=== PATIENT | female | born 1975 | race Two or more races ===

== ENCOUNTER 2024-02-16 10:50 | Emergency (ER) | payer MEDICAID, OTHER ==
[~2024-02-16] VITALS: Ht 167.6 cm; Wt 73.1 kg
[2024-02-16 11:40] VITALS: PULSE 83; RESP 16; TEMP 98.7; O2SAT 98
[2024-02-16 11:54] VITALS: BP 152/85
[2024-02-16] MEDS ORDERED: DOXY1CAP58 PO (11:57)
== END 2024-02-16 11:57 | disposition home or self-care (01) ==
LOC: ER 10:50
DX: T19.2XXA Foreign body in vulva and vagina, initial encounter (principal); I10 Essential (primary) hypertension; Z88.5 Allergy status to narcotic agent; W44.8XXA Other foreign body entering into or through a natural orifice, initial encounter